=== PATIENT | male | born 1955 | race African-American/Black ===

== ENCOUNTER 2023-12-04 17:24 | Emergency (ER) | payer MEDICARE, OTHER ==
[~2023-12-04] VITALS: Ht 180.3 cm; Wt 127.0 kg
[2023-12-04 17:37] VITALS: O2SAT 99
[2023-12-04] MEDS ORDERED: KETOROLAC 30MG/ML VIAL IM STA (17:47)
[2023-12-04 19:21] LABS: BASOPHILS % 0.7 % (0.0-2.0); EOSINOPHILS % 1.8 % (0.0-5.0); HEMATOCRIT. 45.2 % (42.0-52.0); HEMOGLOBIN. 15.3 g/dL (14.0-18.0); LYMPHOCYTES % 33.6 % (20.0-50.0); MEAN CORPUSCULAR HEMOGLOBIN 29.2 pg (28.0-32.0); MEAN CORPUSCULAR HGB CONC 33.7 g/dL (31.0-37.0); MEAN CORPUSCULAR VOLUME 86.6 fL (80.0-94.0); MEAN PLATELET VOLUME 9.2 fl (7.4-10.4); MONOCYTES % 6.1 % (2.0-8.0); NEUTROPHILS % 57.8 % (40.0-76.0); PLATELET 222 x1000/uL (130-400); RED BLOOD CELL COUNT 5.22 mill/uL (4.7-6.1); RED CELL DISTRIBUTION WIDTH 13.9 % (11.6-14.6); WHITE BLOOD COUNT 5.8 x1000/uL (4.5-11.0)
[2023-12-04 19:22] LABS: CHLORIDE 107 mEq/L (98-107); POTASSIUM 4.6 mEq/L (3.5-5.1); SODIUM 138 mEq/L (136-145)
[2023-12-04 19:23] LABS: CALCIUM 8.9 mg/dL (8.7-10.4); CARBON DIOXIDE 25 mEq/L (21-32)
[2023-12-04 19:27] LABS: INR 0.9; PROTHROMBIN TIME 10.6 sec (9.6-11.0)
[2023-12-04 19:28] LABS: CREATININE 1.3 mg/dL (0.6-1.3); UREA NITROGEN BLOOD 15 mg/dL (9-23)
[2023-12-04 19:29] LABS: GLUCOSE 385 mg/dL (70-105)
[2023-12-04] MEDS: SODIUM CHLORIDE 0.9% 1,000 ML IV ONE (20:40)
[2023-12-04] MEDS: KETOROLAC 30MG/ML VIAL IM NR (20:53)
[2023-12-04] MEDS ORDERED: LIDO700A30 TP (20:55)
[2023-12-04] MEDS ORDERED: IBUP-2029 MT (20:55)
[2023-12-04] MEDS ORDERED: METH-653 MT (20:55)
[2023-12-04 21:59] VITALS: BP 131/73; PULSE 71; RESP 16; TEMP 98.3
== END 2023-12-04 22:20 | disposition home or self-care (01) ==
LOC: ER 17:24
DX: S33.5XXA Sprain of ligaments of lumbar spine, initial encounter (principal); M48.56XA Collapsed vertebra, not elsewhere classified, lumbar region, initial encounter for fracture; I10 Essential (primary) hypertension; E11.65 Type 2 diabetes mellitus with hyperglycemia; X58.XXXA Exposure to other specified factors, initial encounter; Y93.89 Activity, other specified; Y92.89 Other specified places as the place of occurrence of the external cause; Y99.8 Other external cause status
CPT/HCPCS: 99285; 74176; 96360; 80048; 82962; 83690; 85025; 85610; 36415; 96372; J1885; J7030

== ENCOUNTER 2024-06-05 14:15 | Emergency (ER) | payer MEDICARE, OTHER ==
[~2024-06-05] VITALS: Ht 180.3 cm; Wt 131.5 kg
[~2024-06-05 14:15] MED LIST: IBUP-2029 MT; LIDO700A30 TP; METH-653 MT
[2024-06-05 14:16] VITALS: BP 169/93; PULSE 85; RESP 16; TEMP 98.2; O2SAT 100; O2SAT 99
== END 2024-06-05 18:37 | disposition home or self-care (01) ==
LOC: ER 14:25
DX: M79.604 Pain in right leg (principal); I10 Essential (primary) hypertension; E11.9 Type 2 diabetes mellitus without complications
CPT/HCPCS: 93970; 99284

== ENCOUNTER 2024-08-01 10:41 | Emergency (ER) | payer MEDICARE, OTHER ==
[~2024-08-01] VITALS: Ht 182.9 cm; Wt 110.0 kg
[2024-08-01 10:46] VITALS: O2SAT 100
[2024-08-01 11:20] LABS: BASOPHILS % 0.7 % (0.0-2.0); HEMATOCRIT. 45.5 % (42.0-52.0); LYMPHOCYTES % 14.4 % (20.0-50.0); MEAN CORPUSCULAR VOLUME 87.9 fL (80.0-94.0); MEAN PLATELET VOLUME 9.2 fl (7.4-10.4); MONOCYTES % 7.1 % (2.0-8.0); NEUTROPHILS % 76.8 % (40.0-76.0); PLATELET 200 x1000/uL (130-400); RED BLOOD CELL COUNT 5.18 mill/uL (4.7-6.1); RED CELL DISTRIBUTION WIDTH 13.3 % (11.6-14.6)
[2024-08-01 11:25] LABS: CHLORIDE 107 mEq/L (98-107); POTASSIUM 4.2 mEq/L (3.5-5.1); SODIUM 138 mEq/L (136-145)
[2024-08-01 11:26] LABS: CARBON DIOXIDE 22 mEq/L (21-32)
[2024-08-01 11:27] LABS: CALCIUM 8.8 mg/dL (8.7-10.4)
[2024-08-01 11:31] LABS: CREATININE 1.1 mg/dL (0.6-1.3); GLUCOSE 253 mg/dL (70-105); UREA NITROGEN BLOOD 9 mg/dL (9-23)
[2024-08-01 11:32] LABS: TROPONIN I HIGH SENSITIVITY 5 ng/L (3.0-53)
[2024-08-01] MEDS ORDERED: MAGNESIUM/ALUMINUM HYDROXIDE/SIMETHICONE 30ML UDC PO PRN (14:00)
[2024-08-01] MEDS ORDERED: HYDRALAZINE HCL 25MG TABLET PO PRN (14:00)
[2024-08-01] MEDS: AMLODIPINE 5MG TABLET PO SCH (14:00)
[2024-08-01] MEDS ORDERED: ONDANSETRON HCL 4MG/2ML INJ IV PRN (14:00)
[2024-08-01] MEDS ORDERED: DOCUSATE SODIUM 100MG CAPSULE PO PRN (14:00)
[2024-08-01] MEDS ORDERED: ACETAMINOPHEN 325MG TABLET PO PRN ×2 (14:00)
[2024-08-01] MEDS ORDERED: DEXTROSE 50% WATER 50ML SYRINGE IV PRN (14:00)
[2024-08-01] MEDS ORDERED: GUAIFENESIN 200MG/10ML SUGAR FREE UDC PO PRN (14:00)
[2024-08-01 16:47] VITALS: BP 141/62; PULSE 89; RESP 18; TEMP 36.7; O2SAT 100
[2024-08-01] MEDS: BLOOD SUGAR DIAGNOSTIC STRIP TEST SCH (16:53)
[2024-08-01] MEDS: INSULIN LISPRO 100 UNITS/ML SUBCUT SCH (16:53)
[2024-08-01] MEDS ORDERED: MELATONIN 3MG TABLET PO PRN (21:00)
== END 2024-08-01 17:26 | disposition left against medical advice (07) ==
LOC: ER 11:01
DX: E11.649 Type 2 diabetes mellitus with hypoglycemia without coma (principal); I10 Essential (primary) hypertension; Z79.4 Long term (current) use of insulin
CPT/HCPCS: 36415; 71045; 80048; 82962; 83036; 83880; 84484; 85025; 93005; 99285

== ENCOUNTER 2024-09-14 15:21 | Emergency (ER) | payer MEDICARE, MEDICAID ==
[~2024-09-14] VITALS: Ht 182.9 cm; Wt 119.0 kg
[2024-09-14 15:23] VITALS: O2SAT 99
[2024-09-14] MEDS ORDERED: BO1 TP (18:18)
[2024-09-14 18:29] VITALS: BP 176/72; PULSE 76; RESP 18; TEMP 37.1; O2SAT 99
== END 2024-09-14 18:31 | disposition home or self-care (01) ==
LOC: ER 15:21
DX: M79.642 Pain in left hand (principal); E11.9 Type 2 diabetes mellitus without complications; I10 Essential (primary) hypertension; R56.9 Unspecified convulsions
CPT/HCPCS: 99283